=== PATIENT | female | born 1955 | race Caucasian/White ===

== ENCOUNTER 2016-05-23 10:11 | Day surgery (SDC) | payer OTHER ==
[~2016-05-23 10:11] MED LIST: AMBIEN10 M1 PO; BENADRYL25 M3 PO; CYMBALTA20 M1 PO; FISH OIL 1,2001 EAC4 PO; MELATONIN10 M4 PO; MOBIC15 M2 PO; MULTIVITAMIN; TENORMIN50 M1 PO; TOPIRAMATE25 M3 PO; TRINTELLIX; TYLENOL325 M2 PO; XANAX0.5 M1 PO; [UNRECOGNIZED DRUG - OTHER]
== END 2016-05-23 17:30 ==
LOC: CTSCAN 10:11 → SHSC 10:45 → ORE 12:53 → PACU 14:57 → SHSC 15:32
PROC: 099R0ZZ Drainage of Left Maxillary Sinus, Open Approach (ICD-10-PCS; principal; 2016-05-23)
PROC: 09BV0ZZ Excision of Left Ethmoid Sinus, Open Approach (ICD-10-PCS; 2016-05-23)
PROC: 09BT0ZZ Excision of Left Frontal Sinus, Open Approach (ICD-10-PCS; 2016-05-23)
DX: J32.4 Chronic pansinusitis (principal); I10 Essential (primary) hypertension; E66.01 Morbid (severe) obesity due to excess calories; M19.90 Unspecified osteoarthritis, unspecified site; G25.81 Restless legs syndrome; J30.9 Allergic rhinitis, unspecified; Z79.899 Other long term (current) drug therapy; J45.909 Unspecified asthma, uncomplicated; F32.9 Major depressive disorder, single episode, unspecified; G47.00 Insomnia, unspecified; Z96.652 Presence of left artificial knee joint; E55.9 Vitamin D deficiency, unspecified; Z98.890 Other specified postprocedural states; Z68.30 Body mass index [BMI] 30.0-30.9, adult; Z90.49 Acquired absence of other specified parts of digestive tract
CPT/HCPCS: C2625; J0171; J7030